=== PATIENT | male | born 1995 | race Asian ===

== ENCOUNTER 2016-05-16 04:10 | Emergency (ER) | payer OTHER ==
[2016-05-16] MEDS ORDERED: METHOCARBAMOL 500 MG TABLET PO ONE (05:05)
[2016-05-16] MEDS ORDERED: IBUPROFEN 600 MG TABLET PO ONE (05:06)
== END 2016-05-16 05:15 | disposition home or self-care (01) ==
DX: S16.1XXA Strain of muscle, fascia and tendon at neck level, initial encounter (principal); S10.81XA Abrasion of other specified part of neck, initial encounter; S40.211A Abrasion of right shoulder, initial encounter; V47.1XXA Car passenger injured in collision with fixed or stationary object in nontraffic accident, initial encounter
CPT/HCPCS: 99283; A9270

== ENCOUNTER 2018-07-06 11:51 | Emergency (ER) | payer OTHER ==
[2018-07-06 11:58] VITALS: BP 129/75
[2018-07-06] MEDS ORDERED: NAPROXEN 250 MG TABLET PO STA (12:54)
--- NOTE | 2018-07-06 12:55 | ED Physician Documentation ---
PD HPI URI - Stated complaint Stated Complaint: SORE THROAT , COUGH - Chief complaint Chief Complaint: Heent - Additional information Additional information: 22-year-old male with 1 day of sore throat, body aches, chills and generally not feeling well. No reports of shortness of breath, abdominal pain, vomiting. Symptoms are described as mild. No other associated symptoms. Review of Systems Constitutional: reports: Fever, Chills, Myalgias, Fatigue Eyes: denies: Discharge Ears: denies: Ear pain Nose: denies: Congestion Throat: reports: Sore throat Respiratory: denies: Cough Skin: denies: Rash Musculoskeletal: denies: Neck pain Neurologic: denies: Generalized weakness PD PAST MEDICAL HISTORY - Past Medical History Past Medical History: No Cardiovascular: None Respiratory: None Neuro: None Endocrine/Autoimmune: None GI: None : None HEENT: None Psych: None Musculoskeletal: None Derm: None - Past Surgical History Past Surgical History: No - Allergies Allergies/Adverse Reactions: Allergies Allergy/AdvReac Type Severity Reaction Status Date / Time No Known Drug Allergies Allergy Verified 07/06/18 11:58 - Social History Does the pt smoke?: No Smoking Status: Never smoker Does the pt drink ETOH?: No Does the pt have substance abuse?: No - Immunizations Immunizations are current?: Yes - POLST Patient has POLST: No PD ED PE NORMAL - General General: Alert and oriented X 3, No acute distress - HEENT HEENT: Atraumatic, PERRL, EOMI, Ears normal, Moist mucous membranes, Pharynx benign - Neck Neck: No adenopathy - Cardiac Cardiac: RRR - Respiratory Respiratory: No respiratory distress - Derm Derm: Normal color - Extremities Extremities: No deformity - Neuro Neuro: Alert and oriented X 3, Normal speech - Psych Psych: Normal mood Results - Vitals Vitals: Vital Signs - 24 hr 07/06/18 11:56 Temperature 37.2 C Heart Rate 102 H Respiratory 16 Rate Blood Pressure 129/75 O2 Saturation 96 Oxygen O2 Source Room air - Labs Labs: Laboratory Tests 07/06/18 12:00 Group A Strep Rapid Negative PD MEDICAL DECISION MAKING - ED course ED course: The patient's symptoms appear to represent a viral process and currently the patient appears appropriate for discharge and ongoing outpatient management. The patient will return to the emergency department for any worsening or any concerns Departure - Departure Disposition: Home, Self Care Clinical Impression: Acute viral pharyngitis Condition: Good Instructions: ED Pharyngitis Viral Follow-Up: YENNI Deshpande [Provider Group] - Within 1 week Comments: Please return to the emergency department for worsening symptoms or any concerns
== END 2018-07-06 13:00 | disposition home or self-care (01) ==
LOC: ED 11:51
DX: J02.8 Acute pharyngitis due to other specified organisms (principal)
CPT/HCPCS: 87070; 87430; 99283; A9270